=== PATIENT | female | born 1965 | race Caucasian/White ===

== ENCOUNTER 2020-05-11 10:58 | Outpatient (REF) | payer BC, SELFPAY | END 2020-05-11 10:59 | disposition home or self-care (01) | LOC: HO.LAB 10:58 | PROVIDERS: PCP Internal Medicine; Visit Provider Internal Medicine | DX: Z20.828 Contact with and (suspected) exposure to other viral communicable diseases (principal) | CPT/HCPCS: C9803; U0003 ==

== ENCOUNTER 2020-05-20 11:45 | Outpatient (REF) | payer BC, SELFPAY | END 2020-05-20 11:46 | disposition home or self-care (01) | LOC: HO.LAB 11:45 | PROVIDERS: Visit Provider Internal Medicine | DX: Z20.822 Contact with and (suspected) exposure to COVID-19 (principal) | CPT/HCPCS: 36415; C9803; U0003 ==

== ENCOUNTER 2020-05-24 08:50 | Outpatient (REF) | payer BC, SELFPAY | END 2020-05-24 08:51 | disposition home or self-care (01) | LOC: HO.LAB 08:50 | PROVIDERS: Visit Provider Internal Medicine | DX: Z20.822 Contact with and (suspected) exposure to COVID-19 (principal) | CPT/HCPCS: 36415; C9803; U0003 ==

== ENCOUNTER 2020-05-30 07:49 | Outpatient (REF) | payer BC, SELFPAY | END 2020-05-30 07:50 | disposition home or self-care (01) | LOC: HO.LAB 07:49 | PROVIDERS: Visit Provider Internal Medicine | DX: Z20.822 Contact with and (suspected) exposure to COVID-19 (principal) | CPT/HCPCS: 36415; C9803; U0003 ==

== ENCOUNTER 2020-06-07 08:38 | Outpatient (REF) | payer BC, SELFPAY | END 2020-06-07 08:39 | disposition home or self-care (01) | LOC: HO.LAB 08:38 | PROVIDERS: Visit Provider Internal Medicine | DX: Z20.822 Contact with and (suspected) exposure to COVID-19 (principal) | CPT/HCPCS: 36415; C9803; U0003 ==